=== PATIENT | female | born 1970 | race Caucasian/White ===

== ENCOUNTER 2017-10-04 12:01 | Observation (INO) ==
--- NOTE | 2017-10-04 12:23 | Emergency Department Note ---
Disposition Clinical Impression: ST segment depression, Chest pressure, Sinus tachycardia Disposition: Admitted As Inpatient Condition: Good General Adult HPI - General Chief complaint: ED Chest Pain Stated complaint: C/P Time Seen by Provider: 10/04/17 12:04 Source: patient, family Limitations: no limitations Nursing Notes Reviewed: Yes Vital Signs Reviewed: Yes - History of Present Illness HPI Narrative: 47-year-old female who reports that on Saturday she went to see her primary care doctor for the first time in her life. She reports that she went to see them because her dad had a heart attack at age 47 and she is 47 and she had been feeling some generalized fatigue. In addition she knew that her blood pressure was high. She was started on 2 blood pressure medications which she thinks are lisinopril and hydrochlorothiazide. She did get a cholesterol screen and was told she did not need to take a cholesterol medication currently. Since that time she has been having some intermittent left shoulder discomfort which comes and goes. In addition she has occasional chest pressure which lasts for one or 2 minutes and then goes away. She also feels palpitations. She reports that she is very nervous that she might be having heart issues. She denies having any chest pain. No history of blood clots. No lower extremity edema or new rashes. No fever or cough. She does not have any current dyspnea. She is not having any current chest pressure or left arm discomfort. She does admit to some mild dyspnea on exertion when she "runs up the stairs " Pain Scale: 0 Improves with: nothing Worsens with: nothing Associated symptoms: Reports: denies other symptoms Treatments Prior to Arrival: none - Related Data Home Medications Medication Instructions Recorded Confirmed Hydrochlorothiazide [Microzide] 12.5 mg PO DAILY 10/04/17 10/04/17 Lisinopril [Zestril] 5 mg PO DAILY 10/04/17 10/04/17 Allergies Allergy/AdvReac Type Severity Reaction Status Date / Time No Known Allergies Allergy Verified 10/04/17 12:04 All systems ED: reviewed and negative except as stated. Constitutional: Denies: fever ENT ED: Denies: throat pain Gastrointestinal: Denies: abdominal pain Musculoskeletal: Denies: neck pain Integumentary: Denies: rash Past Medical History - Past Medical History Medical history: Reports: no medical history Psychiatric history: Reports: anxiety - Social History Smoking Status: Never smoker Smokeless Tobacco Status: No Alcohol use: Reports: none Drug use: Reports: none Physical Exam - General Limitations: no limitations General appearance: alert, in no apparent distress - Head Head exam: atraumatic - Eye Eye exam: Present: normal appearance, PERRL - ENT ENT exam: normal exam, normal oropharynx - Neck Neck exam: Present: normal inspection - Chest Chest inspection: Present: normal inspection - Respiratory Respiratory exam: Present: normal lung sounds bilaterally. Absent: respiratory distress - Cardiovascular Cardiovascular exam: Present: normal rhythm, tachycardia - Abdominal Exam Abdominal exam: Present: soft, Non-Tender - Extremities Exam Extremities exam: Present: normal inspection - Neurological Exam Neurological exam: Present: alert, oriented X3 - Skin Skin exam: Present: warm, dry Course Course Narrative: Recheck HR is 100 from the triage HR of 120's. Likely due to her nervousness and anxiety. Negative D-dimer and low risk wells. PMH of HTN. HEART score of 5 (due to ST depression, age, HTN, history). She is currently pain/symptom free. Will admit. [facility] accepts. Will consult cardiology, Dr Riojas. I spoke with Dr Riojas and she does not recommend heparin initially unless there is a troponin change, or she re-develops chest discomfort, or dynamic EKG changes. Will admit. Vital Signs Temperature 98.2 F 10/04/17 12:05 Pulse Rate 129 10/04/17 12:05 Respiratory Rate 16 10/04/17 12:05 Blood Pressure 138/111 10/04/17 12:05 O2 Sat by Pulse Oximetry 98 10/04/17 12:05 Temperature 98.2 F 10/04/17 12:05 Pulse Rate 111 10/04/17 13:56 Respiratory Rate 15 10/04/17 14:45 Blood Pressure 136/98 10/04/17 14:45 O2 Sat by Pulse Oximetry 98 10/04/17 13:56 Oxygen Delivery Oxygen Delivery Room Air Medical Decision Making - Medical Records Medical records reviewed: Yes I reviewed the patient's medical records. - Lab Data Lab results reviewed: Yes I reviewed the patient's lab results. Result diagrams: 10/04/17 12:13 10/04/17 12:13 Lab Results 10/04/17 10/04/17 10/04/17 Range/Units 12:13 12:13 12:13 WBC 11.4 H (4.3-11.1) K/mcL RBC 4.59 (3.82-4.97) M/mcL Hgb 14.8 (11.5-15.4) g/dL Hct 42.0 (35.3-44.9) % MCV 91.5 (83.0-100.0) fL MCH 32.2 (28.0-33.3) pg MCHC 35.2 (31.6-35.5) g/dL RDW 11.3 L (11.5-14.5) % Plt Count 350 (140-400) K/mcL MPV 9.5 (9.4-12.4) fL Immature Gran % 0.4 (0-4) % Seg Neutrophils % 78.7 % Lymphocytes % 13.9 % Monocytes % 6.1 % Eosinophils % 0.3 % Basophils % 0.6 % Neutrophils # 9.0 H (1.6-8.9) K/mcL Lymphocytes # 1.6 (0.6-4.6) K/mcL Monocytes # 0.7 (0.0-1.3) K/mcL Eosinophils # 0.0 (0.0-0.6) K/mcL Basophils # 0.1 (0.0-0.2) K/mcL PT 11.8 (9.4-12.1) Seconds INR 1.1 APTT 27.7 (26.0-36.0) Seconds D-Dimer < 215 (0-500) ng/mLFEU Sodium 137 (136-145) mEq/L Potassium 3.0 L (3.5-5.1) mEq/L Chloride 97 L (98-107) mEq/L Carbon Dioxide 29 (23-29) mEq/L BUN 14 (6-20) mg/dL Creatinine 0.73 (0.60-1.20) mg/dL Est GFR ( Amer) > 60 (> 60) Est GFR (Non-Af Amer) > 60 (> 60) BUN/Creatinine Ratio 19 (6-26) Glucose 112 H (70-105) mg/dL Est Mean Plasma Glucose mg/dl Hemoglobin A1c ( - 5.6) % Calculated Osmolality 285 (280-300) Calcium 9.6 (8.6-10.3) mg/dL Troponin I (< 0.04) ng/mL Triglycerides 61 (< 150) mg/dL Cholesterol 202 H (< 200) mg/dL LDL Cholesterol, Calc 124 H (0-99) mg/dL VLDL Cholesterol, Calc 12 (< 31) mg/dL HDL Cholesterol 66 H (40-59) mg/dL Cholesterol/HDL Ratio 3.1 (0-4.9) 10/04/17 10/04/17 Range/Units 12:13 12:13 WBC (4.3-11.1) K/mcL RBC (3.82-4.97) M/mcL Hgb (11.5-15.4) g/dL Hct (35.3-44.9) % MCV (83.0-100.0) fL MCH (28.0-33.3) pg MCHC (31.6-35.5) g/dL RDW (11.5-14.5) % Plt Count (140-400) K/mcL MPV (9.4-12.4) fL Immature Gran % (0-4) % Seg Neutrophils % % Lymphocytes % % Monocytes % % Eosinophils % % Basophils % % Neutrophils # (1.6-8.9) K/mcL Lymphocytes # (0.6-4.6) K/mcL Monocytes # (0.0-1.3) K/mcL Eosinophils # (0.0-0.6) K/mcL Basophils # (0.0-0.2) K/mcL PT (9.4-12.1) Seconds INR APTT (26.0-36.0) Seconds D-Dimer (0-500) ng/mLFEU Sodium (136-145) mEq/L Potassium (3.5-5.1) mEq/L Chloride (98-107) mEq/L Carbon Dioxide (23-29) mEq/L BUN (6-20) mg/dL Creatinine (0.60-1.20) mg/dL Est GFR ( Amer) (> 60) Est GFR (Non-Af Amer) (> 60) BUN/Creatinine Ratio (6-26) Glucose (70-105) mg/dL Est Mean Plasma Glucose 88 mg/dl Hemoglobin A1c 4.7 ( - 5.6) % Calculated Osmolality (280-300) Calcium (8.6-10.3) mg/dL Troponin I < 0.03 (< 0.04) ng/mL Triglycerides (< 150) mg/dL Cholesterol (< 200) mg/dL LDL Cholesterol, Calc (0-99) mg/dL VLDL Cholesterol, Calc (< 31) mg/dL HDL Cholesterol (40-59) mg/dL Cholesterol/HDL Ratio (0-4.9) - Radiology Data Radiology results reviewed: Yes I reviewed the patient's radiology results. - EKG Data EKG #1 EKG attestation: Yes I reviewed and interpreted this EKG. EKG shows normal: sinus rhythm Rate: tachycardia Rhythm: NSR Mize/QRS: normal ST segment depression in: v3, v4, v5, v6 When compared to previous EKG there are: previous EKG unavailable Interpretation: other (Mild lateral ST depression with tachycardia HR 129) Attestation Statement - Attestation Attestation: I, Caesar Blackwell, examined this patient and my medical decision-making was reviewed with the HARVESTING MANAGER/PA/Advanced Practice Nurse/Resident Physician. I agree with the documented findings, disposition and treatment plan as described except to the extent set forth below. 47-year-old female presents emergency department with concerns of left upper chest pain. Patient states pain has occurred intermittently over the past few months however the past few days she has had increasing pain to the left upper chest with which did not radiate. It is described as an ache that is not associated with diaphoresis, shortness of breath, palpitations, nausea, vomiting or recent trauma. She does have a history of similar musculoskeletal pain however she was recently diagnosed with hypertension and has a significant family history of cardiac disease and thus wanted further evaluation of her heart. Initial EKG shows a sinus tachycardia with a rate of [address] depressions in leads V3 through V5 without evidence of STEMI. Initial troponin was within normal limits. Patient be admitted to the hospital for further care and evaluation of her acute onset chest pain to rule out ACS.
[2017-10-04 12:38] LABS: Basophils # 0.1 K/mcL (0.0-0.2); Basophils % 0.6 %; Eosinophils % 0.3 %; Hemoglobin 14.8 g/dL (11.5-15.4); Immature Granulocytes % 0.4 % (0-4); Lymphocytes # 1.6 K/mcL (0.6-4.6); Lymphocytes % 13.9 %; Mean Corpuscular HGB Conc 35.2 g/dL (31.6-35.5); Mean Corpuscular Hemoglobin 32.2 pg (28.0-33.3); Mean Corpuscular Volume 91.5 fL (83.0-100.0); Mean Platelet Volume 9.5 fL (9.4-12.4); Monocytes # 0.7 K/mcL (0.0-1.3); Monocytes % 6.1 %; Platelet Count 350 K/mcL (140-400); Red Blood Count 4.59 M/mcL (3.82-4.97); Red Cell Distribution Width 11.3 % (11.5-14.5); Segmented Neutrophils % 78.7 %
[2017-10-04 12:40] LABS: INR 1.1; Prothrombin Time 11.8 Seconds (9.4-12.1)
[2017-10-04 12:42] LABS: Activated Partial Thrombo Time 27.7 Seconds (26.0-36.0)
[2017-10-04 12:51] LABS: BUN/Creatinine Ratio 19 (6-26); Blood Urea Nitrogen 14 mg/dL (6-20); Calcium 9.6 mg/dL (8.6-10.3); Carbon Dioxide 29 mEq/L (23-29); Chloride 97 mEq/L (98-107); Glucose 112 mg/dL (70-105); Osmolality,Calculated 285 (280-300); Sodium 137 mEq/L (136-145); eGFR For African Americans > 60 (> 60); eGFR For Non-African Americans > 60 (> 60)
[2017-10-04 13:00] LABS: D-Dimer < 215 ng/mLFEU (0-500)
[2017-10-04] MEDS ORDERED: Aspirin 325 MG TABLET PO ONE (13:13)
[2017-10-04] MEDS ORDERED: Ondansetron 4 MG/2 ML VIAL IVP PRN (14:26)
[2017-10-04] MEDS ORDERED: Naloxone 0.4 MG/ML INJ IVP PRN (14:26)
[2017-10-04] MEDS ORDERED: Nitroglycerin 0.4 MG TAB.SUBL SL PRN (14:29)
--- NOTE | 2017-10-04 14:34 | Internal Med History&Physical ---
Date of Encounter: 10/04/17 Time of Encounter: 14:32 Assessment and Plan (1) Chest pressure Current visit: Yes Status: Acute Risk factors include family history and hypertension. I believe the patient has some component of anxiety causing some of her symptoms. The main concern is the ST depression changes in leads v3, v4, v5, v6s. Cardiology was consulted. No heparin drip for now. We will trend cardiac enzymes. Check hemoglobin A1c, lipid panel, TSH. We will check an echocardiogram. Stress test in the morning. We will make the patient nothing by mouth after midnight in case a stress test is needed. Patient has been given aspirin 325 mg already. (2) ST segment depression Current visit: Yes Status: Acute Plan as above. (3) Hypertension Current visit: Yes Status: Acute Continue home hydrochlorothiazide at 12.5 mg daily. I will increase lisinopril to 10 mg daily. We will add hydralazine IV be used when necessary. Further adjustments may be needed Qualifiers: Hypertension type: essential hypertension Qualified Code(s): I10 - Essential (primary) hypertension (4) DVT prophylaxis Current visit: Yes Status: Acute Patient is afraid of any needles. [facility] - H&P: HPI Chief complaint: Chest pain Admitted From: Home Plans for Post Hospital Care: Home History of present illness: Ms. Simmons is a 47 year old female who has recently been diagnosed with hypertension and has a history of heart disease in her father in his 40s. She has been having some intermittent left shoulder discomfort which comes and goes. She also describes chest discomfort but does not describe pain. The discomfort lasted for about 2 minutes and goes away on its own. She feels palpitations as well. She thinks thinking about OR brings on the symptoms. Because of those she presented to the emergency department. She had workup that included troponins that were not elevated. She had hypokalemia at 3.0. She had an EKG which showed ST depressions in leads v3, v4, v5, v6. She was given an adult dose aspirin. She was noted to be tachycardic and her diastolic blood pressure is elevated in the low 100s. She has been admitted for EKG changes/chest pressure. Chest x-ray was unremarkable and the EGD. She had mild leukocytosis but denies fever. She has no headache or blurry vision nausea vomiting tingling numbness abdominal pain or symptoms or neurological symptoms. She does complain of some exertional dyspnea. Past Med Surg Social Fam HX - Past Medical History Medical history: no medical history Psychiatric history: anxiety - Social History Smoking Status: Never smoker Smokeless Tobacco Status: No Alcohol use: none Drug use: none Internal Medicine - H&P: Meds Hydrochlorothiazide [Microzide] 12.5 mg PO DAILY 10/04/17 [History] Lisinopril [Zestril] 5 mg PO DAILY 10/04/17 [History] 3 Allergy/AdvReac Type Severity Reaction Status Date / Time No Known Allergies Allergy Verified 10/04/17 12:04 All Systems PM: A 10-system review of systems was performed and is negative for pertinent findings except as documented above in the HPI. Review of systems: All systems reviewed are negative except for what is mentioned above in history of present illness. - Constitutional Vitals: Temp Pulse Resp BP Pulse Ox 98.2 F 111 10 139/98 98 10/04/17 12:05 10/04/17 13:56 10/04/17 13:56 10/04/17 13:56 10/04/17 13:56 Exam: GEN: NAD, anxious HEENT: AT, NC, No cyanosis, oral mucosa is moist, No JVD Lymphatics: No lymphadenoapthy Eyes: Extrocular muscles intact, anicteric CVS:RRR. S1, S2, No m/r/g RESP: CTAB ABD: Soft, NT, ND, +BS EXT: No edema, No rashes, 2+ DP NEURO: Nonfocal, CN II-XII intact, No focal motor or sensory deficits Psych: Cooperative, Not anxious or depressed Internal Med - H&P Results - Labs CBC & Chem 7: 10/04/17 12:13 10/04/17 12:13 Labs: Short CBC 10/04/17 Range/Units 12:13 WBC 11.4 H (4.3-11.1) K/mcL Hgb 14.8 (11.5-15.4) g/dL Hct 42.0 (35.3-44.9) % Plt Count 350 (140-400) K/mcL Neutrophils # 9.0 H (1.6-8.9) K/mcL BMP 10/04/17 12:13 Sodium 137 Potassium 3.0 L Chloride 97 L Carbon Dioxide 29 BUN 14 Creatinine 0.73 Glucose 112 H Calcium 9.6 Cardiac Enzymes 10/04/17 Range/Units 12:13 Troponin I < 0.03 (< 0.04) ng/mL - Impressions ITS Impressions Chest X-Ray 10/04/17 12:06 IMPRESSION: Negative D/ / Kyrie Bello MD / Kyrie Bello MD Interpreting Provider: Kyrie Bello MD
[2017-10-04 14:47] LABS: Chol/HDL Ratio 3.1 (0-4.9); Cholesterol 202 mg/dL (< 200); HDL Cholesterol 66 mg/dL (40-59); LDL Cholesterol,Calculated 124 mg/dL (0-99); Triglycerides 61 mg/dL (< 150)
[2017-10-04 14:48] LABS: Hemoglobin A1C 4.7 %
[2017-10-04 15:08] LABS: Thyroid Stimulating Hormone 1.599 mcIU/mL (0.340-5.600)
[2017-10-04] MEDS ORDERED: *HR* LORazepam 0.5 MG TABLET PO ONE (21:56)
[2017-10-04] MEDS ORDERED: *HR* Heparin 5,000 UNIT/ML VIAL SQ SCH (22:00)
[2017-10-05 00:27] LABS: Basophils # 0.1 K/mcL (0.0-0.2); Basophils % 0.5 %; Eosinophils # 0.1 K/mcL (0.0-0.6); Eosinophils % 0.9 %; Hematocrit 40.4 % (35.3-44.9); Hemoglobin 13.9 g/dL (11.5-15.4); Immature Granulocytes % 0.3 % (0-4); Lymphocytes % 20.4 %; Mean Corpuscular HGB Conc 34.4 g/dL (31.6-35.5); Mean Corpuscular Hemoglobin 31.7 pg (28.0-33.3); Mean Corpuscular Volume 92.2 fL (83.0-100.0); Mean Platelet Volume 9.4 fL (9.4-12.4); Monocytes # 1.1 K/mcL (0.0-1.3); Monocytes % 10.8 %; Neutrophils # 6.7 K/mcL (1.6-8.9); Platelet Count 321 K/mcL (140-400); Red Blood Count 4.38 M/mcL (3.82-4.97); Red Cell Distribution Width 11.3 % (11.5-14.5); Segmented Neutrophils % 67.1 %
[2017-10-05 00:43] LABS: BUN/Creatinine Ratio 19 (6-26); Blood Urea Nitrogen 14 mg/dL (6-20); Calcium 9.5 mg/dL (8.6-10.3); Carbon Dioxide 26 mEq/L (23-29); Chloride 100 mEq/L (98-107); Glucose 95 mg/dL (70-105); Osmolality,Calculated 280 (280-300); Potassium 3.7 mEq/L (3.5-5.1); Sodium 135 mEq/L (136-145); eGFR For African Americans > 60 (> 60); eGFR For Non-African Americans > 60 (> 60)
[2017-10-05] MEDS ORDERED: Regadenoson 0.4 MG/5 ML SYRINGE IVP ONE (07:17)
[2017-10-05] MEDS ORDERED: hydroCHLOROthiazide 25 MG TABLET PO SCH (09:00)
[2017-10-05] MEDS ORDERED: Aspirin Enteric Coated 81 MG Tablet PO SCH (09:00)
[2017-10-05 11:22] VITALS: BP 131/84
--- NOTE | 2017-10-05 12:08 | Discharge Summary ---
Date of Encounter: 10/05/17 Time of Encounter: 12:06 - Discharge Diagnosis (1) Chest pressure Priority: Primary Status: Acute (2) ST segment depression Priority: Primary Status: Acute (3) Hypertension Priority: Secondary Status: Acute Qualifiers: Hypertension type: essential hypertension Qualified Code(s): I10 - Essential (primary) hypertension - Discharge Medications Prescriptions: Hydrochlorothiazide [Microzide] 12.5 mg PO DAILY #30 capsule Lisinopril [Zestril] 10 mg PO DAILY #30 tablet Home Medications: Hydrochlorothiazide [Microzide] 12.5 mg PO DAILY #30 capsule 10/05/17 [Rx] Lisinopril [Zestril] 10 mg PO DAILY #30 tablet 10/05/17 [Rx] Allergies/Adverse Reactions: 3 Allergy/AdvReac Type Severity Reaction Status Date / Time No Known Allergies Allergy Verified 10/04/17 12:04 Procedures/tests Complete & Pending: Procedures Performed prior 72 hours Category Date Time Status NM fred perf SPECT multi [NM] Routine Exams 10/05/17 08:00 Taken SP exercise nuclear stress Routine Y 10/05/17 Completed Date of admission: 10/04/17 14:38 Primary care physician: Rachel Marshall - Patient Status Disposition: Home, Self-Care Condition: Fair Overall status at discharge: patient is back to baseline - Discharge Instructions Instructions: Lisinopril/Hydrochlorothiazide (By mouth), Angina (DC), Chest Pain (DC) Follow Up With: Rachel Marshall CNP [Primary Care Provider] - Fabrizio Lala [Family Provider] - - Diet and Activity Activity: resume usual activities as tolerated Diet: low salt diet Hospital course: Ms. Simmons is a 47 year old female who has recently been diagnosed with hypertension and has a history of heart disease in her father in his 40s. She has been having some intermittent left shoulder discomfort which comes and goes. She also describes chest discomfort but does not describe pain. The discomfort lasted for about 2 minutes and goes away on its own. She felt palpitations as well. She kept thinking about ND brings on the symptoms. Because of those she presented to the emergency department. She had workup that included troponins that were not elevated. She had hypokalemia at 3.0. She had an EKG which showed ST depressions in leads v3, v4, v5, v6. She was given an adult dose aspirin. She never complained of chest pain while she was hospitalized or even in the emergency department. She was noted to be tachycardic and her diastolic blood pressure is elevated in the low 100s. She was admitted for EKG changes/chest pressure. Chest x-ray was unremarkable. She had mild leukocytosis at 11.4 the following dose to 0.0. She was afebrile. She underwent nuclear stress test which came back negative. Her blood pressure was treated by increasing her lisinopril to 10 mg daily. She is also on hydrochlorothiazide 12.5 mg daily. Her troponins remained not elevated times 3. I suspect most of her symptoms were coming from anxiety and over thinking the episodes as she believes that her father had ND at an early age when he was aged 47 and she is approaching that age. I did offer her anxiety medication but she was not interested and I agreed with her. She was discharged in a stable condition and I recommended that she follows up with her primary care physician for further adjustments for her blood pressure medications. - Time Spent with Patient Total time spent providing and/or coordinating discharge services: Greater than 30 minutes - Constitutional Vitals: Temp Pulse Resp BP Pulse Ox 97.8 F 94 18 131/84 95 10/05/17 11:21 10/05/17 11:21 10/05/17 11:21 10/05/17 11:21 10/05/17 11:21 Exam: GEN: NAD CVS: RRR. S1, S2, No m/r/g RESP: CTAB ABD: Soft, NT, ND, +BS EXT: No edema. 2+ DP. No rashes NEURO: Nonfocal - VTE Documentation of Mechanical Device: Graduated compression elastic hosiery
--- NOTE | 2017-10-06 09:05 | Electrocardiograph Report ---
[facility] Test Date: 2017-10-04 Pat Name: Jami Simmons Department: 102 Room: 3B36 Gender: F [employer]er [employer]: : 1970 Requested By: Caesar Blackwell Order Number: [id number] Reading MD: Kendrick Monroe DO Measurements Intervals [place] Rate: 118 P: 78 MN: 130 QRS: 53 QRSD: 85 T: 46 QT: 322 QTc: 392 Interpretive Statements SINUS TACHYCARDIA LEFT ATRIAL ENLARGEMENT [-0.15mV P WAVE IN V1/V2] Electronically Signed On 10-06-2017 9:03:41 EST by Kendrick Monroe DO
== END 2017-10-05 13:26 | disposition home or self-care (01) ==
LOC: 3BNU 12:01 → EMEROO 12:01 → 3BNU 15:30
PROVIDERS: ADMIT Internal Medicine; ATTEND Registered Nurse